=== PATIENT | female | born 1950 | race African-American/Black ===

== ENCOUNTER 2018-04-22 05:50 | Day surgery (SDC) | payer MEDICARE, OTHER ==
--- NOTE | 2018-04-19 17:15 | Pre-op HX & Phy Repo 2 SIG ---
DATE OF ADMISSION: 04/22/2018 DATE OF SURGERY: 04/22/2018 PREOPERATIVE DIAGNOSIS: Nonclearing vitreous hemorrhage, right eye. BRIEF NOTE: This is the first [place] admission for the patient. This is a very nice 67-year-old lady, who complained of blurred vision in the right eye for roughly two months. Her past ocular history is negative for surgery or laser. PAST MEDICAL HISTORY: Remarkable for diabetes, hypertension, and high cholesterol, all diagnosed roughly 11 years ago. MEDICATIONS: She is currently maintained on Januvia, fluconazole, metformin, and lisinopril. ALLERGIES: She has no known allergies. PHYSICAL EXAMINATION: Best vision time of admission was light perception with projection in the right eye and 20/40 in the left. The pressures were 14 and 16. The anterior segment on the right showed sluggish reaction to the pupil. There were adhesions and an irregularity to the pupil. Precipitates were seen on the posterior surface of the cornea as well as 1+ flare. Iris pigmentation was noted as well as nuclear sclerosis. The left anterior segment was quiet except for moderate cataract. Fundus examination of the right eye was poorly seen secondary to the hemorrhage. The left showed a rare lifted kellie consistent with mild diabetic retinopathy. An ultrasound study done on the right eye showed the retina to be all attached, but there was extensive blood and debris. General medical examination was performed by Dr. Garsia, the patient's general medical doctor and this included. ASSESSMENT: Nonclearing vitreous hemorrhage, right eye. PLAN: The plan is to perform a pars plana vitrectomy with exploration and laser treatment and/or Avastin as needed. The risks and benefits of surgery have been gone over with the patient including the potential for infection, hemorrhage, glaucoma, and remote possibility of loss of the eye. The risk of anesthesia was discussed. The patient understands and consents to the surgery, which will be performed on Sunday. Chin Collins M.D. DR: CHRIS JOB#: [id number] CC:
[~2018-04-22] VITALS: Ht 167.6 cm; Wt 61.2 kg
[2018-04-22] VITALS (8 sets, daily range): BP systolic 143–158; BP diastolic 76–96
[2018-04-22] MEDS ORDERED: Pred Forte 1% Opth Susp 1ml RIGHT EYE SCH (06:00)
[2018-04-22] MEDS ORDERED: Avastin 10mg Inj IVITRE ONE (06:00)
[2018-04-22] MEDS: Phenylephrine 2.5% Op 2ml Soln RIGHT EYE SCH ×3 (06:28→06:52)
[2018-04-22] MEDS: Vigamox Opth Soln 3ml RIGHT EYE SCH ×3 (06:28→06:52)
[2018-04-22] MEDS: Flurbiprofen 0.03% Opth Sol 2.5ml RIGHT EYE SCH ×3 (06:29→06:52)
[2018-04-22] MEDS: Cyclopentolate 1% Opth Sol 2ml RIGHT EYE SCH ×3 (06:29→06:52)
--- NOTE | 2018-04-22 06:46 | NUR ---
iv was started by shira rain r.n. at 0640 am
[2018-04-22] MEDS ORDERED: HYDROCHLOROTH12.5 M2 ORAL (06:58)
[2018-04-22] MEDS ORDERED: ASPIRIN81 MG ORAL (06:58)
[2018-04-22] MEDS ORDERED: LEVETIRACETAM750 MG ORAL (06:58)
[2018-04-22] MEDS ORDERED: ATORVASTATIN CA40 MG ORAL (06:58)
[2018-04-22] MEDS ORDERED: LISINOPRIL40 MG ORAL (06:58)
[2018-04-22] MEDS ORDERED: JANUVIA25 MG ORAL (06:58)
[2018-04-22] MEDS ORDERED: LEVETIRACETAM500 MG ORAL (06:58)
[2018-04-22] MEDS ORDERED: METFORMIN HCL500 M3 ORAL (06:58)
[2018-04-22] MEDS ORDERED: Dexamethasone 4mg/ml vial ONE (07:00)
[2018-04-22] MEDS ORDERED: Lidocaine 2% MPF 5ml Vial INJ ONE (07:00)
[2018-04-22] MEDS ORDERED: Kenalog-10 5ml Inj ONE (07:00)
[2018-04-22] MEDS ORDERED: Pred Forte 1% Opth Susp 1ml ONE (07:00)
[2018-04-22] MEDS ORDERED: TRESIBA FL100 UNIT/1 SQ (07:00)
[2018-04-22] MEDS ORDERED: Maxitrol Opth Oint 3.5gm ONE (07:00)
[2018-04-22] MEDS ORDERED: Kenalog-40 1ml Vial ONE (07:00)
[2018-04-22] MEDS ORDERED: Povidone-Iodine 5% opth solution ONE (07:01)
[2018-04-22] MEDS ORDERED: Tetracaine 0.5% Opth 4ml Soln ONE (07:01)
[2018-04-22] MEDS ORDERED: BSS 15ml BTL ONE (07:01)
[2018-04-22] MEDS ORDERED: BSS 500ml btl ONE (07:01)
[2018-04-22] MEDS ORDERED: Bupivacaine 0.75% 30ml vial INJ ONE (07:02)
[2018-04-22] MEDS ORDERED: Sodium Hyaluronate 10 mg/ml 0.85ml ONE (07:02)
[2018-04-22] MEDS ORDERED: EPINEPHrine 1mg/1ml Amp ONE (07:18)
[2018-04-22] MEDS ORDERED: Midazolam 2mg/2ml Inj ONE (07:34)
[2018-04-22] MEDS ORDERED: Alfentanil 2ml Inj ONE (07:34)
[2018-04-22] MEDS ORDERED: Propofol 200mg/20ml IV ONE (07:35)
[2018-04-22] MEDS ORDERED: NS Irrig 1000ml ONE (07:37)
[2018-04-22] MEDS ORDERED: Sterile Water Irrig 1000ml IRRIG ONE (07:37)
[2018-04-22] MEDS ORDERED: LR 1000ml ONE (07:37)
--- NOTE | 2018-04-22 07:37 | Pre-Procedure Note/Attestation ---
Pre-Procedure Note/Attestation Complete Prior to Procedure Planned Procedure: right Procedure Narrative: PPV, membrane peel, endolaser, Avastin injection Right eye Indications for Procedure Pre-Operative Diagnosis: Vitreous hemorrhage Right eye Attestation I attest that I discussed the nature of the procedure; its benefits; risks and complications; and alternatives (and the risks and benefits of such alternatives ), prior to the procedure, with the patient (or the patient's legal textile machinery sales representative). I attest that, if there was a reasonable possibility of needing a blood transfusion, the patient (or the patient's legal textile machinery sales representative) was given the [facility] standardized written summary, pursuant to the [place] Pump Back Blood Safety Act ([place] Health and Safety Code # 1645, as amended). I attest that I re-evaluated the patient just prior to the surgery and that there has been no change in the patient's H&P, except as documented below: Chin Collins MD Apr 22, 2018 07:37
[2018-04-22] MEDS ORDERED: LR 1000ml 1,000 ML IVLG SCH (07:47)
[2018-04-22] MEDS ORDERED: HYDROcodone/Acetamin 5/325 tab ORAL PRN ×2 (08:00→14:01)
[2018-04-22] MEDS ORDERED: Hydromorphone 0.5mg/0.5ml inj IVP PRN (08:00)
[2018-04-22] MEDS ORDERED: LORazepam Inj 2mg/ml 1ml IV PRN (08:00)
[2018-04-22] MEDS ORDERED: fentaNYL 100 mcg/2 mL IV PRN (08:00)
[2018-04-22] MEDS ORDERED: Midazolam 2mg/2ml Inj IVP PRN (08:00)
[2018-04-22] MEDS ORDERED: oxyCODONE HCL/Acetaminophen 5/325mg ORAL PRN (08:00)
[2018-04-22] MEDS ORDERED: Metoclopramide 10mg/2ml Inj IVP PRN (08:00)
[2018-04-22] MEDS ORDERED: Atropine Sulfate 0.4mg/ml inj IVP PRN (08:00)
[2018-04-22] MEDS ORDERED: HYDROcodone/Acetamin 7.5/325 tab ORAL PRN (08:00)
[2018-04-22] MEDS ORDERED: Meperidine 50mg/ml Inj(FOR RIGORS ONLY) IVP PRN (08:00)
[2018-04-22] MEDS ORDERED: DiphenhydrAMINE 50mg/ml Inj IVP PRN (08:00)
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
--- NOTE | 2018-04-22 08:04 | Immediate Post-Op Evaluation ---
Immediate Post-Op Evalulation Immediate Post-Op Evalulation Procedure: Vitrectomy OD Date of Evaluation: Apr 22, 2018 Time of Evaluation: 09:28 IV Fluids: 800 LR Blood Products: 0 Estimated Blood Loss: 1 Urinary Output: 0 Blood Pressure Systolic: 152 Blood Pressure Diastolic: 91 Pulse Rate: 76 Respiratory Rate: 16 O2 Sat by Pulse Oximetry: 100 Temperature (Fahrenheit): 97.7 Pain Score (1-10): 1 Nausea: No Vomiting: No Complications 0 Patient Status: awake, reacts, patent, none Hydration Status: adequate Bryn Leal MD Apr 22, 2018 08:04
--- NOTE | 2018-04-22 08:05 | 48 Hour Post Anesthesia Eval ---
Post Anesthesia Evaluation Procedure: Vitrectomy OD Date of Evaluation: Apr 22, 2018 Time of Evaluation: 11:34 Blood Pressure Systolic: 161 0: 92 Pulse Rate: 78 Respiratory Rate: 18 Temperature (Fahrenheit): 98.2 O2 Sat by Pulse Oximetry: 100 Airway: patent Nausea: No Vomiting: No Pain Intensity: 1 Hydration Status: adequate Cardiopulmonary Status: Stable Mental Status/LOC: patient returned to baseline Follow-up Care/Observations: 0 Post-Anesthesia Complications: 0 Follow-up care needed: ready to discharge Bryn Leal MD Apr 22, 2018 08:05
--- NOTE | 2018-04-22 09:21 | Brief Operative Note ---
Immediate Post Operative Note Operative Note Chief Complaint: Gradual loss of vision Right eye Pre-op Diagnosis: Vitreous hemorrhage Right eye Procedure: PPV, Pars plana lensectomy, iris retactor placement and removal, Kenalog injection Right eye Post-op Diagnosis: Dense vitreous debris and inflammation, pupillary constriction, dense cataract preventing completion of procedure without removal Findings: other - Vitreous inflammation, pupillary constriction, dense cataract Surgeon: jose Anesthesiologist: Mel Anesthesia: MAC Specimen: yes Complications: none Condition: stable Fluids: per anesthesia Estimated Blood Loss: none Drains: none Implant(s) used?: No Chin Collins MD Apr 22, 2018 09:21
--- NOTE | 2018-04-22 18:15 | Operative Note - Dictated ---
DATE OF OPERATION: 04/22/2018 PREOPERATIVE DIAGNOSIS: Possible vitreous hemorrhage, right eye. POSTOPERATIVE DIAGNOSES: Dense inflammatory vitreous debris, pupillary constriction, dense cataract precluding completion of procedure, right eye. SURGEON: Chin Collins M.D. REGULATORY SERVICES CONSULTANT: None. ANESTHESIA: Local with sedation, Dr. Leal. JUSTIFICATION FOR SURGERY: This 67-year-old lady, complained of gradual loss of vision in the right eye and was suspected of having a vitreous hemorrhage. She was admitted for surgery. BRIEF NOTE: The patient was brought to the operating room, placed on the OR table in supine position. After a time-out was performed and agreed upon by the staff and initial monitoring secured by Dr. Leal, retrobulbar and Van Lint blocks were given to the right eye in the standard manner. When the blocks have taken effect, she was prepped and draped in the normal manner. A lid speculum inserted into the right eye. Using a 23-gauge trocar system, cannulas were placed in all except the inferonasal quadrant. Infusion secured inferotemporally. The eye was examined. The pupil was noted to be significantly adhered to the lens with an opening of only 2.5 mm. It was elected to place iris retractors. Four paracenteses were made in the cardinal positions and Healon was used to deepen the chamber. The tip of the Healon cannula was used to break adhesions around the pupil and iris retractors were placed through the paracenteses openings to form an enlarged pupil. This went without complication. The Healon was evacuated from the anterior chamber. Vitrectomy was begun posterior to the lens taking care to avoid contact. A dense whitish vitreous debris was noted much of which was adherent to the posterior lens capsule. Some of the posterior pole could be seen, but the view was definitely suboptimal because of haziness of the lens. It was felt that in order to safely complete the procedure, the lens should be removed. The superotemporal sclerotomy was enlarged to 20-gauge size and using the 20-gauge fragmatome, the lens was fragmented and removed, leaving the anterior capsule intact. The posterior portion of the anterior capsule was buffed with a membrane pick. With the view now much improved, vitrectomy was continued. The vitreous was noted to be significantly inflamed with a [id number] formations consistent with longstanding chronic inflammation. No evidence of active infection was appreciated. The vitreous was removed leaving a small vitreous skirt. The posterior pole appeared benign except for some vascular sclerosis. No choroidal lesions were appreciated. Scleral depression was done 360 degrees. No peripheral breaks, tears, or detachments were seen. The supratemporal sclerotomy was then closed with interrupted 8-0 Vicryl sutures. A similar suture was used to close the overlying conjunctiva with the knot buried. The supranasal cannula was removed and this wound closed with an 8-0 Vicryl suture. At this juncture, the infusion line was disconnected and Kenalog, 3 mg, was injected. Because of the eye was reinflated and this cannula was removed and the sclerotomy also closed. Subconjunctival Decadron and gentamicin were injected inferiorly and topical atropine drops, Vigamox drops, prednisolone drops, and Maxitrol ointment were instilled. The eye was patched and shielded. The vitreous washings were sent to the laboratory for analysis and culture. Chin Collins M.D. DR: STACY JOB#: [id number] CC: Chin Collins M.D.; Fax#: [phone]
== END 2018-04-22 10:35 | disposition home or self-care (01) ==
LOC: SUR 05:50 → EDBD 05:50 → SUR 10:35
DX: H43.89 Other disorders of vitreous body (principal); H26.8 Other specified cataract; E11.319 Type 2 diabetes mellitus with unspecified diabetic retinopathy without macular edema; Z79.4 Long term (current) use of insulin; I10 Essential (primary) hypertension; E78.00 Pure hypercholesterolemia, unspecified; E78.5 Hyperlipidemia, unspecified; F32.9 Major depressive disorder, single episode, unspecified; R56.9 Unspecified convulsions; B35.1 Tinea unguium; Z79.82 Long term (current) use of aspirin; Z86.73 Personal history of transient ischemic attack (TIA), and cerebral infarction without residual deficits
CPT/HCPCS: 67036; 82962; 87070; 87075; 87205; J0171; J1100; J2250; J2704; J3301; J3470; J3490; 94003; 94150; J9035